=== PATIENT | female | born 1975 | race Caucasian/White ===

== ENCOUNTER 2020-06-11 17:24 | Emergency (ER) | payer MEDICARE, SELFPAY ==
--- NOTE | ~2020-06-11 | XR_ITS ---
EXAMINATION: XR chest 2V EXAM DATE: 06/11/2020 18:20 INDICATION: Chest tightness and dizziness. TECHNIQUE: Frontal and lateral projections of the chest obtained and reviewed. There is no prior anna dy for comparison. FINDINGS: The lungs are clear. There are no pleural effusions. The cardiomediastinal silhouette is within normal limits. There is no pneumothorax suspected. The bones and soft tissues are unremarkab le. There are cholecystectomy clips. IMPRESSION: Normal chest x-ray exam. Reviewed, dictated and finalized at location A. IMPRESSION: Normal chest x-ray exam.
[2020-06-11 17:28] VITALS: BP 125/60; PULSE 119; RESP 18; TEMP 36.9; O2SAT 100
--- NOTE | 2020-06-11 17:37 | ECG_ITS ---
Measurements Intervals [place] Rate: 105 P: 82 DE: 152 QRS: -24 QRSD: 91 T: -30 QT: 330 QTc: 438 Interpretive Statements SINUS TACHYCARDIA INCOMPLETE RIGHT BUNDLE BRANCH BLOCK BORDERLINE R WAVE PROGRESSION, ANTERIOR LEADS BORDERLINE T WAVE ABNORMALITY- ANT/INF LEADS ABNORMAL ECG Electronically Signed On 06-11-2020 19:47:17 CDT by Joe Gaytan D.O.
[2020-06-11 18:04] LABS: INR 1.1; Prothrombin Time 13.5 Seconds (11.1-14.7)
[2020-06-11 18:05] LABS: Anion Gap 13.9 mmol/L (7-16); Blood Urea Nitrogen 11 mg/dL (7-17); Calcium 9.3 mg/dL (8.4-10.2); Carbon Dioxide 29 mmol/L (22-30); Chloride 96 mmol/L (98-107); Estimated CRCL calculation 91 ml/min; Estimated Glomerular Filt Rate > 60; Glucose 299 mg/dL (65-105); Potassium 3.9 mmol/L (3.4-5.0); Sodium 135 mmol/L (137-145)
[2020-06-11 18:07] LABS: Partial Thromboplastin Time 32.6 SECONDS (22.3-36.8)
[2020-06-11 18:08] LABS: Basophils Percent Auto 0.4 % (0.2-1.2); Eosinophils Absolute Auto 0.1 K/mm3 (0-0.3); Eosinophils Percent Auto 1.2 % (0-4.4); Hematocrit 42.4 % (37.0-47.0); Hemoglobin 14.2 g/dL (12.0-15.0); Immature Granulocyte Absolute 0.03 K/mm3 (0.00-0.031); Immature Granulocyte Percent A 0.4 % (0-0.5); Lymphocytes Absolute Auto 2.76 K/mm3 (0.9-3.2); Lymphocytes Percent Auto 33.8 % (18.3-44.2); Mean Corpuscular HGB Conc 33.5 g/dl (32-36); Mean Corpuscular Hemoglobin 28.1 pg (26-34); Mean Platelet Volume 9.5 fl (7.4-10.4); Monocytes Absolute Auto 0.4 K/mm3 (0.1-0.6); Monocytes Percent Auto 4.7 % (2.6-8.5); Neutrophils Absolute Auto 4.9 K/mm3 (1.3-6.7); Neutrophils Percent Auto 59.5 % (45.5-73.1); Platelet Count Result 288 k/mm3 (150-375); Red Blood Count 5.05 M/mm3 (4.2-5.4); Red Cell Distribution Width 13.8 % (11.5-14.5); White Blood Count 8.2 K/mm3 (4.5-10.0)
[2020-06-11 18:16] LABS: Troponin I < 0.012 ng/mL (0.000-0.034)
[2020-06-11 19:58] VITALS: BP 123/69; PULSE 101; RESP 17; O2SAT 97
--- NOTE | 2020-06-11 20:20 | ED.GENADULT ---
HPI - General Adult General Chief complaint: Chest Pain Stated complaint: UTI Time Seen by Provider: 06/11/20 19:51 Source: patient and family Mode of arrival: ambulatory Limitations: no limitations History of Present Illness HPI narrative: 44-year-old female No significant medical history but does have a depression history Presents to the ER because she had some urinary symptoms and had a positive 'azo test' she did at home She also has a number of other symptoms which have been present for weeks to months and notes that her PCP, who is at [place] [facility], tells her that there is nothing that they can do at the office and she should just go to the ER These include from time to time dizziness nausea abdominal pains chest pains and back pains and headaches Fortunately none of those things are particularly different today than they have been at any other time in the recent past Onset (ago): day(s) Severity: mild Exacerbating factors: none Related Data Home Medications Medication Instructions Recorded Confirmed Lamictal 06/11/20 Pristiq 06/11/20 Vistaril 06/11/20 levothyroxine 06/11/20 metformin 06/11/20 Allergies Allergy/AdvReac Type Severity Reaction Status Date / Time ziprasidone [From Geodon] Allergy Jittery Verified 06/11/20 17:33 lurasidone [From Latuda] AdvReac Vomiting Verified 06/11/20 17:33 Review of Systems Review of Systems: All systems reviewed & are unremarkable except as noted in HPI and below Constitutional: Constitutional: Reports chills, Reports fatigue and Denies fever(s) Eyes: Eyes: Denies change in vision ENT: Reports dizziness and Denies sore throat Cardiovascular: Cardiovascular: Denies chest pain and Denies slow heart rate Respiratory: Respiratory: Denies chest congestion, Denies cough, Reports dyspnea and Denies wheezing Gastrointestinal: Gastrointestinal: Reports nausea Genitourinary: Genitourinary: Reports nocturia Musculoskeletal: Musculoskeletal: Reports myalgias Neurologic: Reports dizziness, Denies focal weakness and Denies numbness Endocrine: Endocrine: Reports fatigue Hematologic/Lymphatic: Hematologic/Lymphatic: Reports no additional hematologic/lymphatic complaints Allergic/Immunologic: Allergic/Immunologic: Reports no additional allergic/immunologic complaints PMFSH Social History Social History Gender identity (if verbalized by the patient): Female Exam Const: General: no acute distress and alert Nutritional Appearance: obese Orientation/consciousness: patient oriented x3 HENMT: Mouth: Yes moist mucous membranes Eyes: Conjunctivae: conjunctivae normal EOM: EOMs intact bilaterally Neck: Neck: no lymphadenopathy Resp: Effort & Inspection: normal respiratory effort Auscultation: clear to auscultation bilaterally Cardio: Rate: regular rate Rhythm: regular rhythm GI: GI Palp: Yes Soft to palpation and No Tenderness to palpation present (GI) : General: Yes no CVA tenderness Skin: General skin exam: normal color Rashes: no rashes Neuro: General: patient oriented x3 and moves all extremities Speech: normal speech Extrem: General: no pedal edema Course Vital Signs Vital signs: Vital Signs Temperature 36.9 C 06/11/20 17:28 Pulse Rate 119 H 06/11/20 17:28 Respiratory Rate 18 06/11/20 17:28 Blood Pressure 125/60 06/11/20 17:28 Pulse Oximetry 100 06/11/20 17:28 Temperature 36.9 C 06/11/20 17:28 Pulse Rate 94 06/11/20 21:11 Respiratory Rate 16 06/11/20 21:11 Blood Pressure 125/76 06/11/20 21:11 Pulse Oximetry 100 06/11/20 21:11 Medical Decision Making Vital Signs Vital Signs: Vital Signs Temperature 36.9 C 06/11/20 17:28 Pulse Rate 119 H 06/11/20 17:28 Respiratory Rate 18 06/11/20 17:28 Blood Pressure 125/60 06/11/20 17:28 Pulse Oximetry 100 06/11/20 17:28 Temperature 36.9 C 06/11/20 17:28 Pulse Rate 94 07/2
[2020-06-11 20:33] LABS: Add Urine Microscopic? YES; Appearance Urine Clear (Clear); Bacteria Urine Trace /hpf; Bilirubin Urine Negative (Negative); Blood Urine 2+ (Negative); Color Urine Yellow (Yellow); Glucose Urine UA 3+ mg/dL (Negative); Ketones Urine Negative (Negative); Leukocyte Esterase Ur 2+ LEU/UL (Negative); Mucus Urine Rare /lpf; Nitrate Urine Negative (Negative); Protein Urine Negative (Negative); RBC Urine 0-2 /hpf (0-2); Squamous Epithelial Cell Urine Few /hpf (Few); Urobilinogen Urine Negative mg/dL (<2.0); WBC Urine 21-30 /hpf
[2020-06-11 21:11] VITALS: BP 125/76; PULSE 94; RESP 16; O2SAT 100
[2020-06-11 21:55] VITALS: BP 113/74; PULSE 80; RESP 19; TEMP 37.1; O2SAT 100
== END 2020-06-11 21:56 | disposition home or self-care (01) ==
PROVIDERS: Emergency Medicine; Emergency Provider Emergency Medicine
DX: N39.0 Urinary tract infection, site not specified (principal); Z79.84 Long term (current) use of oral hypoglycemic drugs; F32.9 Major depressive disorder, single episode, unspecified
CPT/HCPCS: 36415; 71046; 80048; 81001; 81025; 84443; 84484; 85025; 85610; 85730; 87077; 87086; 87088; 87186; 93005; 99284

== ENCOUNTER 2020-07-02 10:24 | Emergency (ER) | payer MEDICARE, SELFPAY ==
--- NOTE | ~2020-07-02 | XR_ITS ---
EXAMINATION: XR chest 1V portable DATE: 07/02/2020 11:39 INDICATION: Chest pain. TECHNIQUE: A single frontal view of the chest was obtained. COMPARISON: Chest 2 views 06/11/2020 FINDINGS: The chest demonstrates clear lungs without pneumonia, pleural effusion, or pneumothorax. Th e heart size is normal. Surgical clips in the right upper quadrant are likely from cholecystectomy. IMPRESSION: 1. No acute cardiopulmonary disease. Reviewed, dictated and finalized at location B.
[2020-07-02 10:36] VITALS: BP 130/59; PULSE 113; RESP 18; TEMP 36.7; O2SAT 99
--- NOTE | 2020-07-02 10:44 | ECG_ITS ---
Measurements Intervals [place] Rate: 115 P: 33 IA: 165 QRS: 6 QRSD: 112 T: 33 QT: 340 QTc: 471 Interpretive Statements SINUS TACHYCARDIA POSSIBLE LEFT ATRIAL ENLARGEMENT INCOMPLETE RIGHT BUNDLE BRANCH BLOCK DELAYED PRECORDIAL R/S TRANSITION BORDERLINE ST ABNORMALITY- ANTEROLATERAL LEADS ABNORMAL ECG Electronically Signed On 07-02-2020 11:13:25 CDT by Joe Gaytan D.O.
[2020-07-02] MEDS: SODIUM CHLORIDE 0.9% IV 1,000 ML 999 ML IV CONT ×2 (10:58→11:57)
[2020-07-02] MEDS: PROCHLORPERAZINE EDISYLATE 10 MG/2 ML VIAL IV PUSH (10:59)
[2020-07-02] MEDS: diphenhydrAMINE HCl INJ 50 MG/ML VIAL 25 MG IV PUSH (10:59)
[2020-07-02] MEDS: FAMOTIDINE 20 MG/2 ML VIAL IV PUSH (11:00)
[2020-07-02 11:06] LABS: Basophils Absolute Auto 0.1 K/mm3 (0.0-0.1); Basophils Percent Auto 0.5 % (0.2-1.2); Eosinophils Absolute Auto 0.1 K/mm3 (0-0.3); Hematocrit 46.2 % (37.0-47.0); Hemoglobin 15.5 g/dL (12.0-15.0); Immature Granulocyte Absolute 0.04 K/mm3 (0.00-0.031); Immature Granulocyte Percent A 0.4 % (0-0.5); Lymphocytes Absolute Auto 3.27 K/mm3 (0.9-3.2); Lymphocytes Percent Auto 32.7 % (18.3-44.2); Mean Corpuscular HGB Conc 33.5 g/dl (32-36); Mean Corpuscular Hemoglobin 28.4 pg (26-34); Mean Corpuscular Volume 84.6 fl (80-100); Mean Platelet Volume 9.5 fl (7.4-10.4); Monocytes Absolute Auto 0.5 K/mm3 (0.1-0.6); Monocytes Percent Auto 5.4 % (2.6-8.5); Platelet Count Result 340 k/mm3 (150-375); Red Blood Count 5.46 M/mm3 (4.2-5.4); Red Cell Distribution Width 14.2 % (11.5-14.5)
[2020-07-02 11:10] LABS: Add Urine Microscopic? YES; Appearance Urine Clear (Clear); Bacteria Urine Trace /hpf; Bilirubin Urine Negative (Negative); Blood Urine 1+ (Negative); Color Urine Yellow (Yellow); Glucose Urine UA 3+ mg/dL (Negative); Ketones Urine 2+ mg/dL (Negative); Leukocyte Esterase Ur Negative LEU/UL (Negative); Mucus Urine Rare /lpf; Nitrate Urine Negative (Negative); Protein Urine Negative (Negative); RBC Urine 0-2 /hpf (0-2); Squamous Epithelial Cell Urine Few /hpf (Few); Urobilinogen Urine Negative mg/dL (<2.0)
[2020-07-02 11:13] LABS: Specific Grav Ur 1.035 (1.001-1.035)
[2020-07-02 11:14] VITALS: BP 107/74; PULSE 108; RESP 17; O2SAT 96
[2020-07-02 11:17] LABS: Alanine Aminotransferase 90 U/L (4-35); Albumin Level 4.9 g/dL (3.5-5.1); Alkaline Phosphatase 93 U/L (38-126); Anion Gap 14 mmol/L (8-16); Aspartate Amino Transferase 101 U/L (14-36); Bilirubin,Total 1.1 mg/dL (0.2-1.3); Blood Urea Nitrogen 14 mg/dL (7-17); Calcium 9.4 mg/dL (8.4-10.2); Carbon Dioxide 24 mmol/L (22-30); Chloride 99 mmol/L (98-107); Estimated CRCL calculation 71 ml/min; Estimated Glomerular Filt Rate > 60; Glucose 152 mg/dL (65-105); Lipase 223 U/L (23-300); Sodium 137 mmol/L (137-145)
[2020-07-02 11:18] LABS: D Dimer 0.33 ug/mL (<0.48)
[2020-07-02 11:40] LABS: NT Pro B Type Natriuretic Pept < 11 PG/ML (5-100); Troponin I < 0.012 ng/mL (0.000-0.034)
--- NOTE | 2020-07-02 11:58 | ED.GENADULT ---
HPI - General Adult General Chief complaint: Dizziness <TIMOTHY Adame Last Filed: 07/02/20 13:37> Stated complaint: Vomiting After New Medications <TIMOTHY Adame Last Filed: 07/02/20 13:37> Time Seen by Provider: 07/02/20 10:37 <TIMOTHY Adame Last Filed: 07/02/20 13:37> Source: patient and family <TIMOTHY Adame Last Filed: 07/02/20 13:37> Mode of arrival: ambulatory <TIMOTHY Adame Last Filed: 07/02/20 13:37> Limitations: no limitations <TIMOTHY Adame Last Filed: 07/02/20 13:37> History of Present Illness HPI narrative: Patient is a 44-year-old female who presents with nausea and vomiting noting that over the last couple of days the patient has been having nausea and vomiting has been started on some recent new medications by her navy fighter pilot. Patient notes nausea and vomiting discomfort in the abdomen denies any URI symptoms urinary or vaginal complaints but have been treated for recent urinary tract infection. Patient on arrival is in no distress and has not taken anything for her symptoms. <TIMOTHY Adame Last Filed: 07/02/20 13:37> Related Data Home medications: Home Medications Medication Instructions Recorded Confirmed aspirin 07/02/20 atorvastatin 07/02/20 cholecalciferol (vitamin D3) 25 mcg PO DAILY 07/02/20 [Vitamin D3] dapagliflozin [Farxiga] mg 07/02/20 desvenlafaxine succinate mg PO 07/02/20 ferrous sulfate 07/02/20 hydroxyzine pamoate [Vistaril] 25 mg PO BID PRN 07/02/20 lamotrigine 07/02/20 levothyroxine 07/02/20 metformin mg 07/02/20 ramipril mg 07/02/20 semaglutide [Ozempic] mg SUBCUT 07/02/20 <TIMOTHY Adame Last Filed: 07/02/20 13:37> Allergies/adverse reactions: Allergies Allergy/AdvReac Type Severity Reaction Status Date / Time ziprasidone [From Geodon] Allergy Jittery Verified 08/14/20 10:46 lurasidone [From Latuda] AdvReac Vomiting Verified 07/02/20 10:46 <Paul Hernandez PA-C - Last Filed: 07/02/20 13:37> Review of Systems Review of Systems: All systems reviewed & are unremarkable except as noted in HPI and below <Paul Hernandez PA-C - Last Filed: 07/02/20 13:37> [facility] Past Medical History Medical History: Medical History Bipolar disorder Hypertension Obesity <Paul Hernandez PA-C - Last Filed: 07/02/20 13:37> Social History Social History: Social History Smoking status: Never smoker Gender identity (if verbalized by the patient): Female <Paul Hernandez PA-C - Last Filed: 07/02/20 13:37> Exam Narrative: Exam Narrative: GENERAL: Well-appearing, obese, and in no acute distress. HEAD: Normocephalic, atraumatic. EYES: PERRLA and EOMI. ENT: Nares clear, no rhinorrhea or epistaxis. Mucous membranes moist. Oropharynx without tonsillar hypertrophy exudate or other lesions. CHEST: Clear to auscultation. No respiratory distress. No wheezes rales or rhonchi HEART: Regular rate and rhythm. No murmur heard. Normal peripheral pulses. ABDOMEN: Soft, nontender, nondistended EXTREMITIES: Normal range of motion. No edema. SKIN: Warm, dry, no rash. NEURO: No focal deficits. Alert and oriented x3. Cranial nerves II through XII grossly intact PSYCH: Normal mood and affect. <Paul Hernandez PA-C - Last Filed: 07/02/20 13:37> Course Course Emergency Course: Patient in the room in no distress given 2 L of fluid resting comfortably in the room feeling better at this time tolerating p.o. intake will be discharged home advised to continue her medication regimen and to follow with primary care and her navy fighter pilot for further evaluation patient agrees and feels comfortable with this plan <Paul Hernandez PA-C - Last Filed: 07/02/20 13:37> Vital Signs Vital signs: Vital Signs Te
[2020-07-02 12:29] VITALS: BP 104/66; PULSE 100; RESP 18; O2SAT 97
[2020-07-02 13:19] VITALS: BP 108/69; PULSE 98; RESP 18; O2SAT 97
[2020-07-02 13:47] VITALS: BP 105/66; PULSE 100; RESP 20; O2SAT 97
== END 2020-07-02 13:55 | disposition home or self-care (01) ==
PROVIDERS: Emergency Medicine Emergency Medical Services; Emergency Provider Emergency Medicine; PCP Emergency Medicine
DX: R11.2 Nausea with vomiting, unspecified (principal); F31.9 Bipolar disorder, unspecified; I10 Essential (primary) hypertension; E66.9 Obesity, unspecified; Z68.39 Body mass index [BMI] 39.0-39.9, adult; R00.0 Tachycardia, unspecified; R94.31 Abnormal electrocardiogram [ECG] [EKG]; I45.10 Unspecified right bundle-branch block
CPT/HCPCS: 36415; 71045; 80053; 81001; 83690; 83880; 84484; 85025; 85380; 93005; 96361; 96374; 96375; 99284; J0780; J1200; J7030

== ENCOUNTER 2020-07-03 13:00 | Emergency (ER) | payer MEDICARE, SELFPAY ==
[2020-07-03] VITALS (8 sets, daily range): BP systolic 101–120; BP diastolic 55–74; PULSE 97–106; RESP 15–24; TEMP 36.3–36.9; O2SAT 94–100
--- NOTE | ~2020-07-03 | XR_ITS ---
EXAMINATION: XR chest 2V DATE: 07/03/2020 13:52 INDICATION: Abdominal pain radiating to the chest. Nausea and vomiting. TECHNIQUE: Frontal and lateral views of the chest were obtained. COMPARISON: Chest single view 07/02/2020 FINDINGS: The chest demonstrates clear lungs without pneumonia, pleural effusion, or pneumothorax. Th e heart size is normal. Surgical clips in the right upper quadrant are likely from cholecystectomy. IMPRESSION: 1. No acute cardiopulmonary disease. Reviewed, dictated and finalized at location A.
--- NOTE | 2020-07-03 13:36 | ECG_ITS ---
Measurements Intervals [place] Rate: 104 P: 21 RI: 132 QRS: -15 QRSD: 104 T: 5 QT: 343 QTc: 452 Interpretive Statements SINUS TACHYCARDIA INCOMPLETE RIGHT BUNDLE BRANCH BLOCK BORDERLINE T WAVE ABNORMALITY- ANT/INF LEADS ABNORMAL ECG Electronically Signed On 07-03-2020 18:11:02 CDT by Joe Gaytan D.O.
[2020-07-03 14:09] LABS: Basophils Percent Auto 0.2 % (0.2-1.2); Eosinophils Absolute Auto 0.1 K/mm3 (0-0.3); Eosinophils Percent Auto 0.6 % (0-4.4); Hematocrit 43.1 % (37.0-47.0); Hemoglobin 14.4 g/dL (12.0-15.0); Immature Granulocyte Absolute 0.04 K/mm3 (0.00-0.031); Immature Granulocyte Percent A 0.3 % (0-0.5); Lymphocytes Absolute Auto 2.53 K/mm3 (0.9-3.2); Lymphocytes Percent Auto 20.9 % (18.3-44.2); Mean Corpuscular HGB Conc 33.4 g/dl (32-36); Mean Corpuscular Volume 83.9 fl (80-100); Mean Platelet Volume 9.5 fl (7.4-10.4); Monocytes Absolute Auto 0.7 K/mm3 (0.1-0.6); Monocytes Percent Auto 5.5 % (2.6-8.5); Neutrophils Absolute Auto 8.8 K/mm3 (1.3-6.7); Neutrophils Percent Auto 72.5 % (45.5-73.1); Platelet Count Result 317 k/mm3 (150-375); Red Blood Count 5.14 M/mm3 (4.2-5.4); Red Cell Distribution Width 13.8 % (11.5-14.5); White Blood Count 12.1 K/mm3 (4.5-10.0)
[2020-07-03 14:23] LABS: Alanine Aminotransferase 89 U/L (4-35); Albumin Level 4.6 g/dL (3.5-5.1); Alkaline Phosphatase 97 U/L (38-126); Anion Gap 11 mmol/L (8-16); Aspartate Amino Transferase 87 U/L (14-36); Bilirubin,Total 0.8 mg/dL (0.2-1.3); Blood Urea Nitrogen 9 mg/dL (7-17); Calcium 8.5 mg/dL (8.4-10.2); Carbon Dioxide 27 mmol/L (22-30); Chloride 100 mmol/L (98-107); Estimated CRCL calculation 89 ml/min; Estimated Glomerular Filt Rate > 60; Glucose 142 mg/dL (65-105); Potassium 3.7 mmol/L (3.4-5.0); Sodium 138 mmol/L (137-145)
--- NOTE | 2020-07-03 14:37 | ED.WEAKNESS ---
HPI - Weakness General Chief complaint: Weakness Stated complaint: weakness, seen yesterday Time Seen by Provider: 07/03/20 14:07 Source: patient and family History of Present Illness HPI Narrative: 44 years old white female came to the emergency room complaining of generalized weakness started 1 week ago, nausea vomiting and diarrhea started 3 days ago, today the vomiting and diarrhea are resolved. Patient denies any fever, chills,, urinary symptoms, chest pain or abdominal pain. Patient was seen in our emergency room yesterday and was discharged with a diagnosis of nausea and vomiting. Was seen by her family physician today then referred to our emergency room again.. Currently her main complaint is feeling weak and tired. Patient had negative COVID-19 test 1 week ago. Patient was asymptomatic and she done it to make sure she is not infected. Patient does not smoke or drink, Patient started on iron supplement, atorvastatin, Ozempic, and farxiga 6 days ago by her circus laborer Related Data Home Medications Medication Instructions Recorded Confirmed aspirin 07/02/20 atorvastatin 07/02/20 cholecalciferol (vitamin D3) 25 mcg PO DAILY 07/02/20 [Vitamin D3] dapagliflozin [Farxiga] mg 07/02/20 desvenlafaxine succinate mg PO 07/02/20 ferrous sulfate 07/02/20 hydroxyzine pamoate [Vistaril] 25 mg PO BID PRN 07/02/20 lamotrigine 07/02/20 levothyroxine 07/02/20 metformin mg 07/02/20 ramipril mg 07/02/20 semaglutide [Ozempic] mg SUBCUT 07/02/20 Allergies Allergy/AdvReac Type Severity Reaction Status Date / Time ziprasidone [From Geodon] Allergy Jittery Verified 07/02/20 10:46 lurasidone [From Latuda] AdvReac Vomiting Verified 07/02/20 10:46 Review of Systems Review of Systems: Narrative: CONSTITUTIONAL: Denies fever, chills, or sweats. EYES: Denies visual changes, redness, or discharge. ENT: Denies rhinorrhea, congestion, sore throat, or otalgia. CARDIOVASCULAR: Denies chest pain, palpitations, or edema. RESPIRATORY: Denies cough or dyspnea. GASTROINTESTINAL: Denies abdominal pain, nausea, vomiting, or diarrhea. GENITOURINARY: Denies dysuria or hematuria. SKIN: Denies rash or itching. MUSCULOSKELETAL: Denies back pain, joint pain, or myalgia. NEUROLOGIC: Denies headache, numbness, or weakness. PSYCHIATRIC: Denies anxiety or depression. PMFSH Past Medical History Medical History Bipolar disorder Hypertension Obesity Social History Social History Smoking status: Never smoker Gender identity (if verbalized by the patient): Female Exam Narrative: Exam Narrative: General appearance: Well-developed, well-nourished Skin: Normal color Head: Normocephalic, nontraumatic Eyes: Clear conjunctiva ENT: Oropharynx normal, ears normal, nose normal Neck: Supple, nontender Chest and respiratory: Airway patent, no respiratory distress, no accessory muscle use Heart: Regular rate/rhythm Abdomen: Soft, nontender, no organomegaly, quiet bowel sounds Vascular: Normal peripheral pulses, normal capillary refill. Musculoskeletal: Normal range of motion, nontender back Neurologic: Alert and oriented ?3, SCRIPT ARTIST is normal as tested, no gross motor deficit Course Course Emergency Course: Improving Vital Signs Vital signs: Vital Signs Temperature 36.9 C 07/03/20 13:03 Pulse Rate 102 H 07/03/20 13:03 Respiratory Rate 18 07/03/20 13:03 Blood Pressure 101/68 07/03/20 13:03 Pulse Oximetry 99 07/03/20 13:03 Temperature 36.3 C L 07/03/20 15:58 Pulse Rate 98 07/03/20 17:51 Respiratory Rate 23 H 07/03/20 17:51 Blood Pr
[2020-07-03 15:18] LABS: Creatine Kinase 74 U/L (30-135)
[2020-07-03] MEDS: SODIUM CHLORIDE 0.9% IV 1,000 ML 999 ML IV CONT (15:21)
[2020-07-03] MEDS: KETOROLAC 30 MG/ML VIAL (*BKC) IV PUSH (15:21)
== END 2020-07-03 18:37 | disposition home or self-care (01) ==
PROVIDERS: Emergency Provider Emergency Medicine; PCP Emergency Medicine
DX: A08.4 Viral intestinal infection, unspecified (principal); T46.6X5A Adverse effect of antihyperlipidemic and antiarteriosclerotic drugs, initial encounter; F31.9 Bipolar disorder, unspecified; I10 Essential (primary) hypertension; E66.9 Obesity, unspecified; Z68.38 Body mass index [BMI] 38.0-38.9, adult; R00.0 Tachycardia, unspecified; I45.10 Unspecified right bundle-branch block; R94.31 Abnormal electrocardiogram [ECG] [EKG]
CPT/HCPCS: 36415; 71046; 80053; 82550; 84443; 85025; 93005; 96361; 96374; 99284; J1885; J7030

== ENCOUNTER 2020-09-08 07:59 | Outpatient (CLI) | payer MEDICARE, SELFPAY ==
--- NOTE | ~2020-09-08 | US_ITS ---
US right upper quadrant INDICATION: Elevated liver enzymes PROCEDURE: Realtime right upper abdominal ultrasound. COMPARISON: No prior studies for comparison. FINDINGS: The pancreas is normal without focal mass or pancreatic ductal dilation. Liver echotexture is increased, consistent with fatty infiltration. There is normal directional flow in the portal ve in. Gallbladder is surgically absent. Common bile duct measures 2.8 mm. No sonographic Leon's sign. IMPRESSION: 1: Fatty infiltration of the liver. Reviewed, dictated and finalized at location B.
[2020-09-08 08:53] LABS: Hematocrit 42.2 % (37.0-47.0); Mean Corpuscular HGB Conc 33.2 g/dl (32-36); Mean Corpuscular Hemoglobin 28.7 pg (26-34); Mean Corpuscular Volume 86.7 fl (80-100); Mean Platelet Volume 9.1 fl (7.4-10.4); Platelet Count Result 293 k/mm3 (150-375); Red Blood Count 4.87 M/mm3 (4.2-5.4); Red Cell Distribution Width 13.6 % (11.5-14.5); White Blood Count 8.7 K/mm3 (4.5-10.0)
== END 2020-09-08 08:00 | disposition home or self-care (01) ==
PROVIDERS: PCP Emergency Medicine; Visit Provider Emergency Medicine
DX: K76.0 Fatty (change of) liver, not elsewhere classified (principal)
CPT/HCPCS: 36415; 76705; 85027

== ENCOUNTER 2020-09-15 09:44 | Outpatient (CLI) | payer MEDICARE, SELFPAY ==
[2020-09-15 10:12] LABS: Basophils Percent Auto 0.5 % (0.2-1.2); Eosinophils Absolute Auto 0.1 K/mm3 (0-0.3); Eosinophils Percent Auto 1.2 % (0-4.4); Hematocrit 45.3 % (37.0-47.0); Hemoglobin 14.5 g/dL (12.0-15.0); Immature Granulocyte Absolute 0.03 K/mm3 (0.00-0.031); Immature Granulocyte Percent A 0.3 % (0-0.5); Lymphocytes Absolute Auto 3.01 K/mm3 (0.9-3.2); Lymphocytes Percent Auto 34.8 % (18.3-44.2); Mean Corpuscular Hemoglobin 27.7 pg (26-34); Mean Corpuscular Volume 86.6 fl (80-100); Mean Platelet Volume 9.2 fl (7.4-10.4); Monocytes Absolute Auto 0.4 K/mm3 (0.1-0.6); Monocytes Percent Auto 4.3 % (2.6-8.5); Neutrophils Absolute Auto 5.1 K/mm3 (1.3-6.7); Neutrophils Percent Auto 58.9 % (45.5-73.1); Platelet Count Result 282 k/mm3 (150-375); Red Blood Count 5.23 M/mm3 (4.2-5.4); Red Cell Distribution Width 13.9 % (11.5-14.5); White Blood Count 8.6 K/mm3 (4.5-10.0)
[2020-09-15 13:16] LABS: Alanine Aminotransferase 99 U/L (4-35); Albumin Level 4.5 g/dL (3.5-5.1); Alkaline Phosphatase 88 U/L (38-126); Anion Gap 13 mmol/L (8-16); Aspartate Amino Transferase 99 U/L (14-36); Bilirubin,Total 1.3 mg/dL (0.2-1.3); Blood Urea Nitrogen 12 mg/dL (7-17); CRP 1.9 mg/dL (<1.0); Calcium 9.6 mg/dL (8.4-10.2); Carbon Dioxide 26 mmol/L (22-30); Chloride 99 mmol/L (98-107); Estimated Glomerular Filt Rate > 60; Glucose 217 mg/dL (65-105); Potassium 4.1 mmol/L (3.4-5.0); Sodium 138 mmol/L (137-145)
[2020-09-15 13:23] LABS: Erythrocyte Sedimentation Rate 22 mm/hr (0-20)
[2020-09-15 13:25] LABS: Immunoglobulin A 219 mg/dL (70-400); Immunoglobulin G 1389 mg/dL (700-1600); Immunoglobulin M 221 mg/dL (40-230)
[2020-09-17 19:02] LABS: Kappa\\Lambda Light Chains 1.58 (0.26-1.65); Lambda Light Chain 16.7 mg/L (5.7-26.3)
[2020-09-19 22:34] LABS: Alpha 1 Globulin 0.4 g/dL (0.2-0.3); Beta 1 Globulin 0.6 g/dL (0.4-0.6); Gamma Globulin 1.4 g/dL (0.8-1.7); Protein, Total 7.6 g/dL (6.1-8.1)
== END 2020-09-15 09:45 | disposition home or self-care (01) ==
PROVIDERS: PCP Emergency Medicine; Visit Provider Internal Medicine Hematology & Oncology
DX: D72.9 Disorder of white blood cells, unspecified (principal); D72.829 Elevated white blood cell count, unspecified
CPT/HCPCS: 36415; 80053; 82784; 83883; 84155; 84165; 85025; 85652; 86140; 86334; 88184

== ENCOUNTER 2020-12-02 19:33 | Emergency (ER) | payer MEDICARE, SELFPAY ==
[2020-12-02] VITALS (12 sets, daily range): BP systolic 100–125; BP diastolic 42–73; PULSE 99; RESP 14; TEMP 36.7; O2SAT 97–100
--- NOTE | ~2020-12-02 | CT_ITS ---
EXAMINATION: CT abdomen pelvis w con DATE: 12/02/2020 20:40 INDICATION: Generalized abdominal pain TECHNIQUE: Computed tomography (CT) of the abdomen and pelvis was performed with 100 mL Omnipaque-350 intravenous contrast. Automated exposure control and iterative reconstruction technique were employe d. The dose-length product was 973.43 mGy-cm. COMPARISON: None FINDINGS: Mild dependent atelectasis in the left lower lobe. Heart size is normal. No pericardial or pleural ef fusion. Diffuse hepatic steatosis with geographic region of peripheral sparing along the anterior mar gin of the left hepatic lobe. Cholecystectomy clips at the gallbladder fossa. Nonspecific splenomegal y measuring 15.1 cm in length. This may be related to portal venous hypertension as there are also ga stroesophageal varices. Small region of cortical scarring at both kidneys likely sequela of prior inf ection or infarction. There is a 1.3 cm cyst in the left kidney at one of the sites of scarring. Bico rnuate uterus. 2.2 cm right adnexal cyst. Bladder is normal. Bowels including the appendix are normal . Postoperative change of prior ventral hernia mesh repair. No free intraperitoneal gas or fluid. No pathologically enlarged abdominal or pelvic lymphadenopathy. Severe lumbar and moderate lower thoraci c spondylosis. Chronic appearing mild anterior wedging at T10-T12. IMPRESSION: 1. No acute intra-abdominal/pelvic process. 2. Splenomegaly and gastroesophageal varices suggesting portal venous hypertension. 3. Diffuse hepatic steatosis. 4. Bicornuate uterus. Reviewed, dictated and finalized at location A. RVISOR TUNNEL HEADING IMPRESSION: 1. No acute intra-abdominal/pelvic process. 2. Splenomegaly and gastroesophageal varices suggesting portal venous hypertens ion. 3. Diffuse hepatic steatosis. 4. Bicornuate uterus.
--- NOTE | 2020-12-02 19:48 | ED.ABDPAIN ---
HPI - Abdominal Pain General Chief Complaint: Abdominal Pain Stated Complaint: body aches, diarrhea, UTI Time Seen by Provider: 12/02/20 19:42 History of Present Illness HPI narrative: 45 yo female w/ h/o DM, HTN, hypothyroidism presents t [facility] ED for abdominal pain. She says that she has had pain for at least 2 days . She seems to have multiple different pains in her abdomen. She has dull left sided pain. She has sharp intermittent lower pain. And she has frequent bloating. She has associated urinary frequency and dysuria, as well as nausea. She used a home test for UTi, which was positive. No fever, chills. Related Data Home Medications Medication Instructions Recorded Confirmed aspirin 81 mg DAILY 07/02/20 atorvastatin 40 mg DAILY 07/02/20 cholecalciferol (vitamin D3) 25 mcg PO DAILY 07/02/20 [Vitamin D3] dapagliflozin [Farxiga] 10 mg DAILY 07/02/20 desvenlafaxine succinate 50 mg PO DAILY 07/02/20 ferrous sulfate 325 mg DAILY 07/02/20 hydroxyzine pamoate [Vistaril] 25 mg PO BID PRN 07/02/20 lamotrigine 200 mg DAILY 07/02/20 levothyroxine 25 mcg DAILY 07/02/20 ramipril 1.25 mg DAILY 07/02/20 semaglutide [Ozempic] 0.25 mg SUBCUT 07/02/20 metformin 850 mg tablet 850 mg PO BID 09/14/20 Allergies Allergy/AdvReac Type Severity Reaction Status Date / Time ziprasidone [From Geodon] Allergy Jittery Verified 12/02/20 21:16 lurasidone [From Latuda] AdvReac Vomiting Verified 12/02/20 21:16 Review of Systems Review of Systems: All systems reviewed & are unremarkable except as noted in HPI and below (HPI and below) Constitutional: Constitutional: Denies fever(s) Cardiovascular: Cardiovascular: Denies chest pain Respiratory: Respiratory: Denies dyspnea Gastrointestinal: Gastrointestinal: Reports abdominal pain, Reports nausea and Denies vomiting Genitourinary: Genitourinary: Denies hematuria, Reports nocturia and Reports dysuria PMFSH Past Medical History Medical History Bipolar disorder Hypertension Obesity Surgical History Surgical History H/O hernia repair Hx of cholecystectomy Status post medial meniscus repair Family History Family History Mother Eye disease Father FHx: hypercholesterolemia Social History Social History Smoking status: Never smoker Gender identity (if verbalized by the patient): Female Exam Const: General: no acute distress and alert Nutritional Appearance: obese Orientation/consciousness: patient oriented x3 HENMT: Head: normal to inspection Resp: Effort & Inspection: normal respiratory effort Auscultation: clear to auscultation bilaterally Cardio: Rate: regular rate Rhythm: regular rhythm GI: Inspection: non-distended GI Palp: Yes Soft to palpation, Yes Tenderness to palpation present (GI) (periumbilical), No Guarding due to palpation present (GI) and No Rebound tenderness present Skin: General skin exam: normal color Neuro: General: patient oriented x3 and moves all extremities Speech: normal speech Course Vital Signs Vital signs: Vital Signs Temperature 36.7 C 12/02/20 19:36 Pulse Rate 99 12/02/20 19:36 Respiratory Rate 14 12/02/20 19:36 Blood Pressure 125/42 L 12/02/20 19:36 Pulse Oximetry 99 12/02/20 19:36 Temperature 36.7 C 12/02/20 19:36 Pulse Rate 99 12/02/20 19:36 Respiratory Rate 14 12/02/20 19:36 Blood Pressure 100/57 L 12/02/20 21:01 Pulse Oximetry 98 12/02/20 21:15 MDM - Abdominal Pain MDM Narrative Medical decision making narrative: UA shows only trace leukocyte esterase. Given that she is symptomatic this could indicate UTI. She will need GI follow-up for CT findings. I discussed this with her in detail. Differential Diagnosis Differential diagnosis: Likely acute
--- NOTE | 2020-12-02 19:53 | PC.NURSE ---
provider in room.
[2020-12-02 20:07] LABS: Basophils Percent Auto 0.2 % (0.2-1.2); Eosinophils Absolute Auto 0.1 K/mm3 (0-0.3); Eosinophils Percent Auto 1.2 % (0-4.4); Hematocrit 40.3 % (37.0-47.0); Hemoglobin 13.7 g/dL (12.0-15.0); Immature Granulocyte Absolute 0.03 K/mm3 (0.00-0.031); Immature Granulocyte Percent A 0.4 % (0-0.5); Lymphocytes Absolute Auto 2.81 K/mm3 (0.9-3.2); Lymphocytes Percent Auto 32.8 % (18.3-44.2); Mean Corpuscular Hemoglobin 28.4 pg (26-34); Mean Corpuscular Volume 83.6 fl (80-100); Monocytes Absolute Auto 0.5 K/mm3 (0.1-0.6); Monocytes Percent Auto 5.3 % (2.6-8.5); Neutrophils Absolute Auto 5.2 K/mm3 (1.3-6.7); Neutrophils Percent Auto 60.1 % (45.5-73.1); Platelet Count Result 279 k/mm3 (150-375); Red Blood Count 4.82 M/mm3 (4.2-5.4); Red Cell Distribution Width 13.9 % (11.5-14.5); White Blood Count 8.6 K/mm3 (4.5-10.0)
[2020-12-02 20:12] LABS: Add Urine Microscopic? YES; Amorphous Sediment Urine Few; Appearance Urine Clear (Clear); Bacteria Urine Trace /hpf; Bilirubin Urine Negative (Negative); Blood Urine Negative (Negative); Color Urine Yellow (Yellow); Glucose Urine UA Negative (Negative); Ketones Urine Negative (Negative); Leukocyte Esterase Ur Trace LEU/UL (Negative); Mucus Urine Rare /lpf; Nitrate Urine Negative (Negative); Protein Urine Negative (Negative); RBC Urine 0-2 /hpf (0-2); Squamous Epithelial Cell Urine Moderate /hpf (Few); Urobilinogen Urine Negative mg/dL (<2.0); WBC Urine 0-3 /hpf
[2020-12-02 20:19] LABS: Alanine Aminotransferase 57 U/L (4-35); Albumin Level 4.2 g/dL (3.5-5.1); Alkaline Phosphatase 84 U/L (38-126); Anion Gap 10 mmol/L (8-16); Aspartate Amino Transferase 55 U/L (14-36); Blood Urea Nitrogen 7 mg/dL (7-17); Calcium 8.8 mg/dL (8.4-10.2); Carbon Dioxide 28 mmol/L (22-30); Chloride 98 mmol/L (98-107); Estimated CRCL calculation 89 ml/min; Estimated Glomerular Filt Rate > 60; Glucose 222 mg/dL (65-105); Lipase 180 U/L (23-300); Potassium 3.5 mmol/L (3.4-5.0); Sodium 136 mmol/L (137-145)
--- NOTE | 2020-12-02 20:48 | PC.NURSE ---
resting on stretcher. just ambulated back from restroom. CT results pending. no change in condition. on BP and O2 on monitor.
--- NOTE | 2020-12-02 21:01 | PC.NURSE ---
CT resulted. waiting for further orders from provider vs disposition.
[2020-12-02] MEDS: NITROFURANTOIN MONOHYD MACROCR 100 MG CAP PO (21:35)
== END 2020-12-02 21:49 | disposition home or self-care (01) ==
LOC: ANHED 19:55
PROVIDERS: Emergency Provider Emergency Medicine; PCP Emergency Medicine
DX: K76.0 Fatty (change of) liver, not elsewhere classified (principal); K76.6 Portal hypertension; I10 Essential (primary) hypertension; N39.0 Urinary tract infection, site not specified; E11.9 Type 2 diabetes mellitus without complications; E03.9 Hypothyroidism, unspecified; Z79.82 Long term (current) use of aspirin; Z79.84 Long term (current) use of oral hypoglycemic drugs; E66.9 Obesity, unspecified; Z68.39 Body mass index [BMI] 39.0-39.9, adult; I85.10 Secondary esophageal varices without bleeding; D73.9 Disease of spleen, unspecified; Q51.3 Bicornate uterus
CPT/HCPCS: 36415; 74177; 80053; 81001; 81025; 83690; 85025; 99284; A9270; Q9967

== ENCOUNTER 2020-12-03 13:16 | Emergency (ER) | payer MEDICARE, SELFPAY ==
[2020-12-03 13:25] VITALS: BP 125/85; PULSE 98; RESP 16; TEMP 36.2; O2SAT 99
--- NOTE | 2020-12-03 14:06 | ED.ABDPAIN ---
HPI - Abdominal Pain General Chief Complaint: Abdominal Pain Stated Complaint: UPPER ABD PAIN, SEEN HERE YESTERDAY Time Seen by Provider: 12/03/20 13:45 Source: patient Mode of arrival: ambulatory Limitations: no limitations History of Present Illness HPI narrative: This patient is a 45 year old female with history of hypertension, DM, fatty liver who presents for evaluation of possible cirrhosis. Patient reports she was seen in ER yesterday. She had labs and CT scan performed. She reports she spoke to her PCP today , and he told she needed to be seen by a senior sales executive today. She states she was told to come back to ER if she is unable to get an appointment. She intermittent nausea but she denies vomiting. She denies blood in her stool , and she denies melena. She reports her stool is actually pain. She has intermittent lower abdominal pain. Her states he called Dr. Sheppard's office and he was unable to get any one to call him back. Related Data Home Medications Medication Instructions Recorded Confirmed aspirin 81 mg DAILY 07/02/20 atorvastatin 40 mg DAILY 07/02/20 cholecalciferol (vitamin D3) 25 mcg PO DAILY 07/02/20 [Vitamin D3] dapagliflozin [Farxiga] 10 mg DAILY 07/02/20 desvenlafaxine succinate 50 mg PO DAILY 07/02/20 ferrous sulfate 325 mg DAILY 07/02/20 hydroxyzine pamoate [Vistaril] 25 mg PO BID PRN 07/02/20 lamotrigine 200 mg DAILY 07/02/20 levothyroxine 25 mcg DAILY 07/02/20 ramipril 1.25 mg DAILY 07/02/20 semaglutide [Ozempic] 0.25 mg SUBCUT 07/02/20 metformin 850 mg tablet 850 mg PO BID 09/14/20 Allergies Allergy/AdvReac Type Severity Reaction Status Date / Time ziprasidone [From Geodon] Allergy Jittery Verified 12/03/20 14:37 lurasidone [From Latuda] AdvReac Vomiting Verified 12/03/20 14:37 Review of Systems Review of Systems: All systems reviewed & are unremarkable except as noted in HPI and below Constitutional: Constitutional: Denies chills and Denies fever(s) Respiratory: Respiratory: Denies cough and Denies dyspnea Gastrointestinal: Gastrointestinal: Reports abdominal pain, Denies constipation, Denies diarrhea, Reports nausea and Denies vomiting Genitourinary: Genitourinary: Denies hematuria PMFSH Past Medical History Medical History Bipolar disorder Hypertension Obesity Surgical History Surgical History H/O hernia repair Hx of cholecystectomy Status post medial meniscus repair Family History Family History Mother Eye disease Father FHx: hypercholesterolemia Social History Social History Smoking status: Never smoker Gender identity (if verbalized by the patient): Female Exam Const: General: no acute distress and alert Orientation/consciousness: patient oriented x3 HENMT: Head: atraumatic Face and sinus: face symmetric Mouth: Yes Normal oral and palatal mucosa present, Yes lip normal, Yes oropharynx normal and Yes moist mucous membranes Throat: posterior oropharynx normal and tonsils normal Eyes: Pupils: Equal, round and reactive pupils present EOM: EOMs intact bilaterally Resp: Effort & Inspection: normal respiratory effort and no retractions Auscultation: clear to auscultation bilaterally Cardio: Rate: regular rate Rhythm: regular rhythm Heart sounds: no murmurs GI: GI Palp: Yes Soft to palpation, No Tenderness to palpation present (GI) and No Guarding due to palpation present (GI) Auscultation: normal bowel sounds Skin: General skin exam: normal color Rashes: no rashes Neuro: General: patient oriented x3 and moves all extremities Course Reevaluation(s) Reevaluation #1: PAtient's labs are still stable. She has no vomiting, no bloody stools, no melena. I sat with her and her to disc
[2020-12-03 14:41] LABS: Hematocrit 41.4 % (37.0-47.0); Hemoglobin 13.6 g/dL (12.0-15.0)
[2020-12-03 14:51] LABS: Partial Thromboplastin Time 28.6 SECONDS (22.3-36.8); Prothrombin Time 13.5 Seconds (11.1-14.7)
[2020-12-03 14:53] LABS: Alanine Aminotransferase 54 U/L (4-35); Albumin Level 4.2 g/dL (3.5-5.1); Alkaline Phosphatase 89 U/L (38-126); Aspartate Amino Transferase 50 U/L (14-36); Bilirubin,Total 1.1 mg/dL (0.2-1.3)
[2020-12-03 17:01] LABS: Hepatitis B Surface Antigen Negative (Negative)
[2020-12-03 17:07] LABS: HAV RESULT Negative (Negative); Hepatitis B Core IgM Result Negative (Negative)
[2020-12-03 17:18] LABS: Hepatitis C Virus Antibody Negative (Negative)
[2020-12-03 17:38] VITALS: BP 107/57; PULSE 97; RESP 18; TEMP 36.9; O2SAT 99
== END 2020-12-03 17:42 | disposition home or self-care (01) ==
PROVIDERS: Emergency Provider General Practice; PCP Emergency Medicine
DX: K76.0 Fatty (change of) liver, not elsewhere classified (principal); K76.6 Portal hypertension; I10 Essential (primary) hypertension; E11.9 Type 2 diabetes mellitus without complications; Z79.82 Long term (current) use of aspirin; Z79.84 Long term (current) use of oral hypoglycemic drugs; F31.9 Bipolar disorder, unspecified; E66.9 Obesity, unspecified; Z68.31 Body mass index [BMI] 31.0-31.9, adult
CPT/HCPCS: 36415; 80074; 80076; 85014; 85018; 85610; 85730; 99283

== ENCOUNTER 2021-04-04 12:23 | Outpatient (CLI) | payer MEDICARE, SELFPAY ==
--- NOTE | ~2021-04-04 | XR_ITS ---
EXAMINATION: XR foot LT min 3V DATE: 04/04/2021 12:50 INDICATION: Left third toe injury TECHNIQUE: Dorsoplantar, lateral, and 2 oblique views of the right foot were obtained. COMPARISON: None. FINDINGS: Bone alignment is normal. There is no fracture. A plantar calcaneal enthesophyte is noted. The soft tissues are unremarkable. IMPRESSION: 1. No acute osseous abnormality. Reviewed, dictated and finalized at location A.
== END 2021-04-04 12:24 | disposition home or self-care (01) ==
PROVIDERS: PCP Emergency Medicine; Visit Provider Emergency Medicine
DX: S99.922A Unspecified injury of left foot, initial encounter (principal)
CPT/HCPCS: 73630

== ENCOUNTER 2021-05-13 18:44 | Emergency (ER) | payer MEDICARE, SELFPAY | END 2021-05-13 21:23 | disposition left against medical advice (07) | LOC: ANHED 20:15 | PROVIDERS: PCP Emergency Medicine | DX: Z53.21 Procedure and treatment not carried out due to patient leaving prior to being seen by health care provider (principal) | CPT/HCPCS: 99199 ==

== ENCOUNTER 2021-11-17 10:19 | Outpatient (CLI) | payer MEDICARE, SELFPAY ==
--- NOTE | ~2021-11-17 | CT_ITS ---
EXAMINATION: CT abdomen pelvis w con DATE: 11/17/2021 10:52 INDICATION: Fatty liver TECHNIQUE: Computed tomography (CT) of the abdomen and pelvis was performed with 100 mL Omnipaque-350 intravenous contrast. Automated exposure control and iterative reconstruction technique were employe d. The dose-length product was 1019.29 mGy-cm. COMPARISON: 12/02/2020 FINDINGS: Lung bases are clear. Heart size is normal. No pericardial or pleural effusion. Cholecystectomy clips the gallbladder fossa. Mild splenomegaly measuring 14.5 cm craniocaudal length slightly decreased fr om the prior study and which is likely related to portal venous hypertension given the presence of a dilated coronary vein and small paraesophageal varices. Liver, pancreas and bilateral adrenal glands are normal. Small region of cortical scarring at both kidneys likely sequela of prior infection or le ss likely infarction. 2.8 cm parapelvic cyst at the upper pole of the left kidney which appears to pr otrude through one of the regions of cortical scarring. Partially decompressed bladder is normal. Bic ornuate uterus. Bilateral adnexa are unremarkable. Bowels including the appendix are normal. Postoper ative change of prior ventral hernia mesh repair. No free intraperitoneal gas or fluid. No pathologic ally enlarged abdominal or pelvic lymphadenopathy. Severe lumbar and moderate lower thoracic spondylo sis. Chronic minimal to mild anterior wedging at T10-T12. IMPRESSION: 1. Normal appearing liver with resolution of prior diffuse hepatic steatosis. 2. Portal venous hypertension with dilated coronary vein extending to a small paraesophageal varices and mild splenomegaly measuring 14.5 cm in maximal length, decreased from 15.1 cm. 3. Bicornuate uterus. Reviewed, dictated and finalized at location A. 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 Normal appearing liver with resolution of prior diffuse hepatic steatosis. 2. Portal venous hypertension with dilated coronary vein extending to a small p araesophageal varices and mild splenomegaly measuring 14.5 cm in maximal length , decreased from 15.1 cm. 3. Bicornuate uterus.
[2021-11-17 10:45] LABS: Estimated Glomerular Filt Rate > 60
== END 2021-11-17 10:20 | disposition home or self-care (01) ==
LOC: ANHIMG 10:24
PROVIDERS: PCP Emergency Medicine; Visit Provider Internal Medicine Gastroenterology
DX: K76.0 Fatty (change of) liver, not elsewhere classified (principal); Q51.3 Bicornate uterus
CPT/HCPCS: 74177; Q9967

== ENCOUNTER 2022-04-20 08:18 | Outpatient (CLI) | payer MEDICARE, SELFPAY ==
--- NOTE | 2022-05-02 12:00 | WPDHOMESLEEP ---
Sleep Study - Home Unattended Date of Study: 04/20/22 Ordering Provider: Pratik Medellin APRN Interpreting Provider: Alize Zafar, DO Home Sleep Study Type: Watch PAT Height: 1.52 m Weight: 92.533 kg Body Mass Index: 39.8 Neck Circumference (inches): 15 Altha: 5 Reason for Sleep Study Previously diagnosed sleep apnea with history of CPAP use. Needs a new machine. Sleep History The patient is a 46-year-old female with bipolar disorder, type 2 diabetes, hyperlipidemia, hypertension, hypothyroidism and obesity that had a sleep study ordered so the patient could restart PAP therapy. The patient is currently disabled. She occasionally awakens from sleep short of breath. She rarely awakens at night with heartburn, belching or cough. She frequently snores but it is rarely loud enough that others complain. She frequently has trouble sleeping when she has a cold. She denies waking up gasping for air throughout the night. She rarely has breathing problems at night observed by herself or others. She frequently sweats excessively at night. She frequently has heart palpitations or irregular heartbeats during the night. She occasionally falls asleep during the day but never while driving. She occasionally experiences loss of muscle tone when extremely emotional. She rarely has trouble at school or work due to sleepiness. She rarely feels unable to move for waking up or falling asleep. She frequently experiences vivid dreamlike scenes upon awakening or falling asleep. She denies feeling afraid of going to sleep. She rarely has nightmares. She frequently remembers her dreams. She occasionally has thoughts racing through her mind. She occasionally feels sad or depressed. He frequently has anxiety. She frequently has muscular tension. She rarely notices parts of her body jerk. She rarely kicks during the night. She denies having crawling and aching feelings in her legs but will rarely have leg pain during the night. She denies grinding her teeth during sleep but will rarely awaken with morning jaw pain. She is occasionally bothered by pain during the day but rarely awakened by pain during the night. She occasionally wakes up feeling stiff morning. She occasionally wakes up with sore and achy muscles. She occasionally wakes up with pain in the neck, spine or other joints. the patient does not have a set bedtime on weekdays or weekends. She states that it takes a long time for her to fall asleep. she wakes up 3 times throughout the night to urinate. The amount of time it takes for her to fall back asleep varies. She wakes up around 8:00 a.m. on weekdays and weekends. The amount of sleep she gets per night very. She will stay in bed for 1 hour after waking up in the morning. She currently lives with her and his parents. She will occasionally drink a caffeinated beverage within 2 hours of bedtime. She does not engage in physical exercise before bedtime. She will watch television before falling asleep. She does not take naps in the afternoon or the evening. She will drink diet Pepsi throughout the day. She denies tobacco, alcohol and recreational drug use. FORMERLY [facility], [facility] Past Medical History Medical History Bipolar disorder Diabetes Hypercholesteremia Hypertension Hypothyroid Obesity Surgical History Surgical History H/O hernia repair Hx of cholecystectomy Status post medial meniscus repair Family History Family History Mother Eye disease Father FHx: hypercholesterolemia Social History Social History Smoking status: Never smoker Alcohol intake: never Additional occupation/education comments: [employer] Gender identity (if verbalized by the patient): Female Medications Home
[2022-05-02 12:16] VITALS: BMI 39.8
== END 2022-04-21 10:07 | disposition home or self-care (01) ==
LOC: ANHCSM 08:19
PROVIDERS: PCP Emergency Medicine; Visit Provider Nurse Practitioner Family
DX: G47.33 Obstructive sleep apnea (adult) (pediatric) (principal)
CPT/HCPCS: 95800

== ENCOUNTER 2022-05-12 13:22 | Outpatient (CLI) | payer MEDICARE, SELFPAY ==
--- NOTE | ~2022-05-12 | NM_ITS ---
EXAMINATION: NM liver and spleen scan DATE: 05/12/2022 14:42 INDICATION: Fatty liver. TECHNIQUE: 8.2 mCi Tc-99m sulfur colloid was administered intravenously. Scintigrams of the abdomen were obtained. COMPARISON: CT abdomen and pelvis 11/17/2021 FINDINGS: There is a normal distribution of activity in the liver, spleen, and bone marrow. IMPRESSION: 1. Normal exam. Reviewed, dictated and finalized at location A. IMPRESSION: 1. Normal exam.
== END 2022-05-12 13:23 | disposition home or self-care (01) ==
PROVIDERS: Visit Provider Internal Medicine Gastroenterology
DX: K76.0 Fatty (change of) liver, not elsewhere classified (principal)
CPT/HCPCS: 78215; A9541

== ENCOUNTER 2023-01-04 09:04 | Outpatient (CLI) | payer MEDICARE, SELFPAY ==
--- NOTE | 2023-01-30 13:05 | WPDSLEEPSTUD ---
Sleep Study Date of Study: 01/04/23 Ordering Provider: Pratik Medellin APRN Interpreting Physician: Alize Zafar DO Sleep Study Type: Split Polysomnogram Height: 1.52 m Weight: 83.007 kg Body Mass Index: 35.7 Neck Circumference (inches): 15 Dudley: 5 Reason for Sleep Study Previous diagnosis of AMAIRANI. Needs to re-qualify for PAP. Had an HSAT on 04/20/2022 that showed an AHI of 1.9 Sleep History The patient is a 47-year-old female with bipolar disorder, type 2 diabetes, hyperlipidemia, hypertension, hypothyroidism and obesity that had a sleep study ordered so the patient could restart PAP therapy.? The patient is currently disabled.? She occasionally awakens from sleep short of breath.? She rarely awakens at night with heartburn, belching or cough.? She frequently snores but it is rarely loud enough that others complain.? She frequently has trouble sleeping when she has a cold.? She denies waking up gasping for air throughout the night.? She rarely has breathing problems at night observed by herself or others.? She frequently sweats excessively at night.? She frequently has heart palpitations or irregular heartbeats during the night.? She occasionally falls asleep during the day but never while driving.? She occasionally experiences loss of muscle tone when extremely emotional.? She rarely has trouble at school or work due to sleepiness.? She rarely feels unable to move for waking up or falling asleep.? She frequently experiences vivid dreamlike scenes upon awakening or falling asleep.? She denies feeling afraid of going to sleep.? She rarely has nightmares.? She frequently remembers her dreams.? She occasionally has thoughts racing through her mind.? She occasionally feels sad or depressed.? He frequently has anxiety.? She frequently has muscular tension.? She rarely notices parts of her body jerk.? She rarely kicks during the night.? She denies having crawling and aching feelings in her legs but will rarely have leg pain during the night.? She denies grinding her teeth during sleep but will rarely awaken with morning jaw pain.? She is occasionally bothered by pain during the day but rarely awakened by pain during the night.? She occasionally wakes up feeling stiff morning.? She occasionally wakes up with sore and achy muscles.? She occasionally wakes up with pain in the neck, spine or other joints. ?the patient does not have a set bedtime on weekdays or weekends.? She states that it takes a long time for her to fall asleep.? she wakes up 3 times throughout the night to urinate.? The amount of time it takes for her to fall back asleep varies.? She wakes up around 8:00 a.m. on weekdays and weekends.? The amount of sleep she gets per night very.? She will stay in bed for 1 hour after waking up in the morning.? She currently lives with her and his parents.? She will occasionally drink a caffeinated beverage within 2 hours of bedtime.? She does not engage in physical exercise before bedtime.? She will watch television before falling asleep.? She does not take naps in the afternoon or the evening. She will drink diet Pepsi throughout the day.? She denies tobacco, alcohol and recreational drug use. [facility] Past Medical History Medical History Bipolar disorder Diabetes Hypercholesteremia Hypertension Hypothyroid Obesity Surgical History Surgical History H/O hernia repair Hx of cholecystectomy Status post medial meniscus repair Family History Family History Mother Eye disease Father FHx: hypercholesterolemia Social History Social History Smoking status: Never smoker Alcohol intake: never Living arrangements: with family Occupation/Education: occupation Additional occupation/education comments: [employer]
[2023-01-30 13:09] VITALS: BMI 35.7
--- NOTE | 2023-06-27 15:29 | SLEEP ---
pt is returning machine to [facility] d/t out of pocket expense
== END 2023-01-05 07:29 | disposition home or self-care (01) ==
LOC: ANHCSM 09:05
PROVIDERS: Visit Provider Nurse Practitioner Family
DX: G47.9 Sleep disorder, unspecified (principal); G47.30 Sleep apnea, unspecified; G47.33 Obstructive sleep apnea (adult) (pediatric)
CPT/HCPCS: 95811